=== PATIENT | male | born 1960 | race Two or more races ===

== ENCOUNTER 2018-07-04 16:47 | Inpatient (IN) | payer OTHER ==
[~2018-07-04] VITALS: Ht 167.6 cm; Wt 82.9 kg
--- NOTE | 2018-07-04 17:10 | NUR ---
Transferred from [facility] where he was diagnosed with bilateral PN. Patient reported AMS, malaise, irregular gait, and dysarthria x 2 days at [facility], but denies all complaints at this time. Patient had elevated trop and D dimer at [facility]. Patient received 5 units insulin and 2 L NS prior to arival at [facility]. EKG done. FSBS = 550. 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 Will continue to monitor.
[2018-07-04] MEDS ORDERED: PLEASE ENTER HEIGHT AND WEIGHT MC SCH (17:30)
[2018-07-04] MEDS ORDERED: INSULIN REGULAR 100 UNITS/ML, 3ML VIAL IVPush ONE (17:30)
[2018-07-04] MEDS ORDERED: PLEASE ENTER ALLERGIES MC SCH (17:30)
[2018-07-04] MEDS ORDERED: INSULIN REGULAR 100 UNITS/ML, 3ML VIAL ONE (17:37)
[2018-07-04] MEDS ORDERED: AMLO-150 PO (17:38)
[2018-07-04] MEDS ORDERED: LOSA25TA25 PO (17:38)
[2018-07-04] MEDS ORDERED: METF500T17 PO (17:38)
[2018-07-04 17:51] LABS: BASOPHILS # (AUTO) 0.01 x10^3/uL (0-0.1); BASOPHILS % (AUTO) 0 % (0-1); EOSINOPHILS % (AUTO) 0 % (1-7); LYMPHOCYTES # (AUTO) 0.64 x10^3/uL (1-3.4); LYMPHOCYTES % (AUTO) 9 % (22-44); MD NO; MEAN CORPUSCULAR HEMOGLOBIN 29.8 pg (27.5-34.5); MEAN CORPUSCULAR HGB CONC 33.4 g/dL (33.2-36.2); MEAN CORPUSCULAR VOLUME 89.2 fL (81-97); MEAN PLATELET VOLUME 9.3 fL (7.4-10.4); MONOCYTES # (AUTO) 0.49 x10^3/uL (0.2-0.8); MONOCYTES % (AUTO) 7 % (2-9); NEUTROPHILS # (AUTO) 6.26 x10^3/uL (1.8-6.8); NEUTROPHILS % (AUTO) 85 % (42-75); PLATELET COUNT 315 x10^3/uL (130-400); RED BLOOD COUNT 3.92 x10^6/uL (4.38-5.82); RED CELL DISTRIBUTION WIDTH 13.3 % (9.4-14.8)
[2018-07-04 18:02] LABS: ALBUMIN 1.6 g/dL (3.4-5.0); ANION GAP 6 mmol/L (5-15); CALCIUM 7.7 mg/dL (8.5-10.1); CHLORIDE 96 mmol/L (98-107); CREATININE 2.08 mg/dL (0.7-1.3)
[2018-07-04 18:12] LABS: TROPONIN I 0.318 ng/mL (0.000-0.045)
[2018-07-04 18:21] LABS: ACETONE, SERUM Negative (Negative)
[2018-07-04] MEDS ORDERED: HEPARIN 5,000 UNITS/ML, 1ML IV ONE (18:30)
[2018-07-04] MEDS ORDERED: HEPARIN 25,000 UNITS/500ML PMX 500 ML IV PRN (18:30)
[2018-07-04] MEDS ORDERED: HEPARIN 5,000 UNITS/ML, 1ML IV PRN (18:30)
[2018-07-04] MEDS ORDERED: HEPARIN 5,000 UNITS/ML, 1ML ONE (18:48)
[2018-07-04] MEDS ORDERED: HEPARIN 25,000 UNITS/500ML PMX 500 ML ONE (18:48)
--- NOTE | 2018-07-04 18:59 | NUR ---
HEPARIN BOLUS AND GTT STARTED.
--- NOTE | 2018-07-04 20:08 | NUR ---
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
--- NOTE | 2018-07-04 20:52 | NUR ---
Report to Odalis VOGEL
[2018-07-04] MEDS ORDERED: DOCUSATE 100 MG CAPSULE PO PRN (21:00)
[2018-07-04] MEDS ORDERED: DIPHENHYDRAMINE 25 MG CAPSULE PO PRN (21:00)
[2018-07-04] MEDS ORDERED: GABAPENTIN 300 MG CAPSULE PO PRN (21:00)
[2018-07-04] MEDS ORDERED: ACETAMINOPHEN 325 MG TABLET PO PRN (21:00)
[2018-07-04 21:11] LABS: ALBUMIN 1.4 g/dL (3.4-5.0); ANION GAP 9 mmol/L (5-15); CALCIUM 7.5 mg/dL (8.5-10.1); CHLORIDE 101 mmol/L (98-107)
[2018-07-04 21:14] LABS: CREATININE 1.89 mg/dL (0.7-1.3)
[2018-07-04 21:15] LABS: ALANINE AMINOTRANSFERASE 37 U/L (12-78); ALKALINE PHOSPHATASE 123 U/L (45-117); BILIRUBIN,TOTAL 0.2 mg/dL (0.2-1.0); TOTAL PROTEIN 5.1 g/dL (6.4-8.2)
--- NOTE | 2018-07-04 21:21 | NUR ---
REPORT FROM ANIKET. VSS. PT RESTING IN NAD. LAB AT BEDSIDE
[2018-07-04 22:55] LABS: ESTIMATED AVERAGE GLUCOSE 413 mg/dL (0-126); HEMOGLOBIN A1C > 16.0 % (4.2-6.3)
[2018-07-04] MEDS: SODIUM CHLORIDE 0.9% 1,000 ML IV SCH (23:35)
[2018-07-05] MEDS: INSULIN LISPRO 100 UNITS/ML, PEN SQ-INSULIN SCH ×5 (00:46→20:55)
[2018-07-05 01:51] VITALS: BP 158/69
[2018-07-05 03:08] VITALS: BP 175/80
[2018-07-05 06:19] LABS: ANION GAP 6 mmol/L (5-15); CALCIUM 7.6 mg/dL (8.5-10.1); CHLORIDE 104 mmol/L (98-107)
[2018-07-05 06:25] LABS: CHOL/HDL RATIO 7.2; CHOLESTEROL, TOTAL 289 mg/dL (140-239); CREATININE 1.51 mg/dL (0.7-1.3); HDL CHOL % 14 % (26-37); HDL CHOLESTEROL (DIRECT) 40 mg/dL (40-60); LDL CHOLESTEROL,CALCULATED 218 mg/dL (54-169); LDL/HDL RATIO 5.5 (0.5-3.0); TRIGLYCERIDES 153 mg/dL (50-200); VLDL CHOLESTEROL 31 mg/dL (0-25)
[2018-07-05 06:43] VITALS: BP 158/81
[2018-07-05] MEDS: SODIUM CHLORIDE 0.9% 1,000 ML IV SCH ×3 (07:22→21:19)
[2018-07-05] MEDS ORDERED: DEXTROSE 50%, 50ML SYRINGE IVPush PRN (08:00)
[2018-07-05] MEDS ORDERED: PHARMACY MAY ADJ FOR RENAL FX MC PRN (08:00)
[2018-07-05] MEDS ORDERED: GLUCAGON 1 MG IM PRN (08:00)
[2018-07-05] MEDS ORDERED: DEXTROSE 4 GM TAB.CHEW PO PRN (08:00)
[2018-07-05 13:48] VITALS: BP 138/71
[2018-07-05] MEDS: ATORVASTATIN 40 MG TABLET PO SCH (15:02)
[2018-07-05] MEDS: SODIUM CHLORIDE FLUSH 10ML SYR IVF SCH ×2 (15:02→20:55)
[2018-07-05] MEDS: ASPIRIN 81 MG TABLET CHEW PO/NG SCH (15:02)
[2018-07-05 20:00] VITALS: BP 143/69
[2018-07-06 02:00] VITALS: BP 169/77
[2018-07-06] MEDS: SODIUM CHLORIDE 0.9% 1,000 ML IV SCH (04:21)
[2018-07-06 06:14] LABS: BASOPHILS # (AUTO) 0.02 x10^3/uL (0-0.1); BASOPHILS % (AUTO) 0 % (0-1); EOSINOPHILS # (AUTO) 0.11 x10^3/uL (0-0.4); EOSINOPHILS % (AUTO) 2 % (1-7); LYMPHOCYTES # (AUTO) 0.97 x10^3/uL (1-3.4); LYMPHOCYTES % (AUTO) 19 % (22-44); MD NO; MEAN CORPUSCULAR HEMOGLOBIN 30.4 pg (27.5-34.5); MEAN CORPUSCULAR HGB CONC 33.7 g/dL (33.2-36.2); MEAN CORPUSCULAR VOLUME 90.3 fL (81-97); MEAN PLATELET VOLUME 9.2 fL (7.4-10.4); MONOCYTES # (AUTO) 0.59 x10^3/uL (0.2-0.8); MONOCYTES % (AUTO) 11 % (2-9); NEUTROPHILS # (AUTO) 3.51 x10^3/uL (1.8-6.8); NEUTROPHILS % (AUTO) 68 % (42-75); PLATELET COUNT 277 x10^3/uL (130-400); RED BLOOD COUNT 3.46 x10^6/uL (4.38-5.82); RED CELL DISTRIBUTION WIDTH 13.6 % (9.4-14.8)
[2018-07-06 06:22] LABS: CHLORIDE 105 mmol/L (98-107)
[2018-07-06 06:31] LABS: ALBUMIN 1.1 g/dL (3.4-5.0); ANION GAP 6 mmol/L (5-15); CALCIUM 7.1 mg/dL (8.5-10.1); CREATININE 1.11 mg/dL (0.7-1.3)
[2018-07-06] MEDS: INSULIN LISPRO 100 UNITS/ML, PEN SQ-INSULIN SCH ×4 (07:00→21:27)
[2018-07-06 07:10] VITALS: BP 186/88
[2018-07-06] MEDS ORDERED: POTASSIUM CHLORIDE 40 MEQ in SODIUM CHLORIDE 0.9% 500 ML IV ONE (08:00)
[2018-07-06] MEDS: ASPIRIN 81 MG TABLET CHEW PO/NG SCH (08:07)
[2018-07-06] MEDS: SODIUM CHLORIDE FLUSH 10ML SYR IVF SCH ×2 (08:07→21:28)
[2018-07-06] MEDS: ATORVASTATIN 40 MG TABLET PO SCH (08:07)
[2018-07-06] MEDS ORDERED: REGADENOSON 0.4 MG/5 ML SYRINGE ONE (09:03)
[2018-07-06 12:27] VITALS: BP 168/80
[2018-07-06 14:46] LABS: ALBUMIN 1.2 g/dL (3.4-5.0); ANION GAP 3 mmol/L (5-15); CALCIUM 6.8 mg/dL (8.5-10.1); CHLORIDE 104 mmol/L (98-107)
[2018-07-06 17:00] VITALS: BP_SYST 162; BP_SYST 175; BP_DIAS 73; BP_DIAS 82
[2018-07-06] MEDS ORDERED: LISINOPRIL 5 MG TABLET PO SCH (17:30)
[2018-07-06 19:10] VITALS: BP 167/73
[2018-07-06] MEDS ORDERED: INSULIN GLARGINE 100 UNITS/ML, PEN SQ-INSULIN SCH (21:00)
[2018-07-07 01:08] VITALS: BP 161/73
[2018-07-07 05:35] LABS: ALBUMIN 1.1 g/dL (3.4-5.0); ANION GAP 6 mmol/L (5-15); CALCIUM 7.2 mg/dL (8.5-10.1); CHLORIDE 106 mmol/L (98-107); CREATININE 1.22 mg/dL (0.7-1.3)
[2018-07-07] MEDS ORDERED: POTASSIUM CHLORIDE 20 MEQ TAB.ER.PRT PO ONE (06:30)
[2018-07-07] MEDS: INSULIN LISPRO 100 UNITS/ML, PEN SQ-INSULIN SCH (07:00)
[2018-07-07 07:20] VITALS: BP 165/76
[2018-07-07] MEDS: ASPIRIN 81 MG TABLET CHEW PO/NG SCH (08:15)
[2018-07-07] MEDS: SODIUM CHLORIDE FLUSH 10ML SYR IVF SCH (08:15)
[2018-07-07] MEDS: ATORVASTATIN 40 MG TABLET PO SCH (08:15)
[2018-07-07] MEDS ORDERED: LISINOPRIL 5 MG TABLET PO SCH (09:00)
[2018-07-07] MEDS ORDERED: LISI5TAB7 PO (10:33)
[2018-07-07] MEDS ORDERED: INSU100I13 SQ-INSULIN (10:33)
[2018-07-07] MEDS ORDERED: ASPI-515 PO/NG (10:33)
[2018-07-07] MEDS ORDERED: ATOR40TA78 PO (10:33)
== END 2018-07-07 12:45 | disposition home or self-care (01) | DRG 682 ==
LOC: EDBD 16:47 → ED 21:14 → 4EST 23:28 → DCLOUNGE 07-07 12:07
PROVIDERS: ADMIT Family Medicine; ATTEND Family Medicine
DX: N17.9 Acute kidney failure, unspecified (principal); G93.41 Metabolic encephalopathy; E43 Unspecified severe protein-calorie malnutrition; E11.22 Type 2 diabetes mellitus with diabetic chronic kidney disease; E11.51 Type 2 diabetes mellitus with diabetic peripheral angiopathy without gangrene; E11.65 Type 2 diabetes mellitus with hyperglycemia; E78.5 Hyperlipidemia, unspecified; I12.9 Hypertensive chronic kidney disease with stage 1 through stage 4 chronic kidney disease, or unspecified chronic kidney disease; I65.23 Occlusion and stenosis of bilateral carotid arteries; I70.8 Atherosclerosis of other arteries; I77.1 Stricture of artery; N18.9 Chronic kidney disease, unspecified; Z79.02 Long term (current) use of antithrombotics/antiplatelets; Z79.4 Long term (current) use of insulin; Z79.82 Long term (current) use of aspirin; Z83.3 Family history of diabetes mellitus; Z86.73 Personal history of transient ischemic attack (TIA), and cerebral infarction without residual deficits; Z68.29 Body mass index [BMI] 29.0-29.9, adult
CPT/HCPCS: 0399T; 36415; 70551; 71045; 78452; 78582; 80048; 80053; 80061; 82010; 82040; 82962; 83036; 83605; 84484; 85025; 85520; 87040; 90656; 93005; 93017; 93306; 93880; 93970; 96365; 96366; 96375; 99285; G0378; J1644; J2785; J3480; 92523-GN; A9502; A9540; A9558; C9898; J1815; J7030; J7040